=== PATIENT | male | born 1990 | race American Indian/Alaskan Native ===

== ENCOUNTER 2017-08-23 21:42 | Emergency (ER) | payer SELFPAY ==
[2017-08-23] MEDS ORDERED: PEPCID IV ONE (21:58)
[2017-08-23] MEDS ORDERED: ADRENALIN IM ONE (21:58)
[2017-08-23] MEDS ORDERED: BENADRYL IV ONE (21:58)
[2017-08-23] MEDS ORDERED: BENADRYL ONE (22:01)
--- NOTE | 2017-08-23 22:16 | Emergency Department Report ---
ED Allergic Reaction HPI - General Chief complaint: Allergic Reaction Stated complaint: ALLERGIC REACTION Time Seen by Provider: 08/23/17 21:56 Source: patient Mode of arrival: Ambulatory Limitations: No Limitations - History of Present Illness Initial Comments: Mr. Katz is a healthy 27-year-old male with history of shellfish allergy. He was exposed to fish today. He washed out a pot which was used to cook fish. Has difficulty with breathing. Throat feels tight. He took Benadryl prior to arrival. He is able to swallow water. MD Complaint: allergic reaction -: Sudden Exposure: food Symptoms: rash, facial swelling, difficulty swallowing, difficulty breathing Treatment Prior to Arrival: benadryl Previous Allergy History: other (history of shellfish allergy) - Related Data Previous Rx's Medication Instructions Recorded Last Taken Type EPINEPHrine [Epipen 2-Davey] 0.3 mg IJ ONCE PRN #1 auto.injct 08/23/17 Unknown Rx Famotidine 20 mg PO BID 3 Days #6 tablet 08/23/17 Unknown Rx diphenhydrAMINE [Benadryl CAP] 25 mg PO Q6HR 3 Days #12 capsule 08/23/17 Unknown Rx predniSONE [Deltasone] 3 tab PO QDAY 3 Days #9 tab 08/23/17 Unknown Rx Allergies Allergy/AdvReac Type Severity Reaction Status Date / Time shellfish derived Allergy Anaphylaxis Verified 08/23/17 21:54 ED Review of Systems ROS: Stated complaint: ALLERGIC REACTION Other details as noted in HPI Comment: All other systems reviewed and negative Constitutional: denies: fever, malaise Respiratory: denies: cough Cardiovascular: denies: chest pain ED Past Medical Hx - Past Medical History Previous Medical History?: No - Surgical History Past Surgical History?: No - Social History Smoking Status: Never Smoker Substance Use Type: None - Medications Home Medications: Home Medications Medication Instructions Recorded Confirmed Last Taken Type EPINEPHrine [Epipen 2-Davey] 0.3 mg IJ ONCE PRN #1 auto.injct 08/23/17 Unknown Rx Famotidine 20 mg PO BID 3 Days #6 tablet 08/23/17 Unknown Rx diphenhydrAMINE [Benadryl CAP] 25 mg PO Q6HR 3 Days #12 capsule 08/23/17 Unknown Rx predniSONE [Deltasone] 3 tab PO QDAY 3 Days #9 tab 08/23/17 Unknown Rx ED Physical Exam - General Limitations: No Limitations General appearance: alert, in distress, other (appears uncomfortable) - Head Head exam: Present: atraumatic, normocephalic, other (periorbital edema and mild lip swelling normal tongue size) - Eye Eye exam: Present: normal appearance - ENT ENT exam: Present: mucous membranes moist, other (mild lip swelling normal tongue size) - Neck Neck exam: Present: normal inspection. Absent: tenderness, meningismus - Respiratory Respiratory exam: Present: normal lung sounds bilaterally. Absent: respiratory distress, wheezes, rales, rhonchi, stridor - Cardiovascular Cardiovascular Exam: Present: regular rate, normal rhythm. Absent: systolic murmur, diastolic murmur, rubs, gallop - GI/Abdominal GI/Abdominal exam: Present: soft, normal bowel sounds. Absent: distended, tenderness, guarding, rebound - Rectal Rectal exam: Present: deferred - Extremities Exam Extremities exam: Present: normal inspection - Back Exam Back exam: Present: normal inspection - Neurological Exam Neurological exam: Present: alert, oriented X3 - Psychiatric Psychiatric exam: Present: normal affect, anxious - Skin Skin exam: Present: warm, dry, intact, normal color, other (no urticaria). Absent: rash ED Course Vital Signs 08/23/17 08/23/17 21:46 21:58 Temperature 97.8 F Pulse Rate 97 H Respiratory 36 H 30 H Rate Blood Pressure 134/79 O2 Sat by Pulse 97 100 Oximetry ED Medical Decision Making - Medical Decision Making Marvel is a 27 yo female who presents with a shortness of breath angioedema facial swelling due to food allergy. Treated for anaphylaxis with epinephrine, diphenhydramine, famotidine and Solu-Medrol. Symptoms have completely resolved. I have prescribed EpiPen Benadryl famotidine and prednisone. Critical care attestation.: If time is entered above; I have spent that time in minutes in the direct care of this critically ill patient, excluding procedure time. ED Disposition Clinical Impression: Anaphylaxis due to fish Disposition: DC-01 TO HOME OR SELFCARE Is pt being admited?: No Does the pt Need Aspirin: No Condition: Stable Instructions: Anaphylaxis (ED) Prescriptions: diphenhydrAMINE [Benadryl CAP] 25 mg PO Q6HR 3 Days #12 capsule EPINEPHrine [Epipen 2-Davey] 0.3 mg IJ ONCE PRN #1 auto.injct PRN Reason: Allergic Reaction Famotidine 20 mg PO BID 3 Days #6 tablet predniSONE [Deltasone] 3 tab PO QDAY 3 Days #9 tab Referrals: [facility] [Outside] - as needed Forms: Work/School Release Form(ED)
[2017-08-24 00:01] VITALS: BP 106/74
== END 2017-08-23 23:59 | disposition home or self-care (01) ==
LOC: ED 21:42
DX: T78.03XA Anaphylactic reaction due to other fish, initial encounter (principal); Z91.013 Allergy to seafood; Y93.G1 Activity, food preparation and clean up; Y99.8 Other external cause status; Y92.89 Other specified places as the place of occurrence of the external cause
CPT/HCPCS: 96372; 96374; 96375; 99283; J0171; J1200; J2930